=== PATIENT | female | born 1965 | race Caucasian/White ===

== ENCOUNTER 2020-07-05 09:36 | Emergency (ER) | payer OTHER ==
[2020-07-05] MEDS ORDERED: EPINEPHrine SYRINGE 1 MG/10 ML SYRINGE ONE ×2 (10:16→12:00)
[2020-07-05 10:46] LABS: BASO # 0.1 x10^3/uL (0.0-0.2); BASO % 1 % (0-3); EOS # 0.1 x10^3/uL (0.0-0.7); EOS % 1 % (0-3); HEMATOCRIT 45.1 % (36.0-47.0); HEMOGLOBIN 13.9 g/dL (12.0-15.5); LYMPH # 10.1 x10^3/uL (1.0-4.8); LYMPH % 53 % (24-48); MEAN CORPUSCULAR HEMOGLOBIN 30 pg (25-35); MEAN CORPUSCULAR HGB CONC 31 g/dL (31-37); MEAN CORPUSCULAR VOLUME 97 fL (79-100); MONO # 1.3 x10^3/uL (0.0-1.1); MONO % 7 % (0-9); NEUT # 7.6 x10^3/uL (1.8-7.7); NEUT % 40 % (31-73); PLATELET COUNT 129 x10^3/uL (140-400); RED BLOOD COUNT 4.67 x10^6/uL (3.50-5.40); RED CELL DISTRIBUTION WIDTH 14.1 % (11.5-14.5); WHITE BLOOD COUNT 19.2 x10^3/uL (4.0-11.0)
[2020-07-05 10:52] LABS: CALCIUM 9.1 mg/dL (8.5-10.1); CREATININE 1.5 mg/dL (0.6-1.0); GFR 35.9; POTASSIUM 4.3 mmol/L (3.5-5.1)
[2020-07-05 10:55] LABS: ALBUMIN 3.1 g/dL (3.4-5.0); ALBUMIN/GLOBULIN RATIO 0.8 (1.0-1.7); TOTAL PROTEIN 7.2 g/dL (6.4-8.2)
--- NOTE | 2020-07-05 11:17 | ED.ADGEN ---
General Adult EDM: Chief Complaint: CPR/FULL ARREST HPI: HPI: Patient is 54-year-old female with past medical history of asthma who presents to the emergency room in cardiac arrest. According to EMS they were called for shortness of breath. Upon their arrival patient had a oxygen level of 100% on room air and was not in any respiratory distress. They loaded her up in the ambulance and started a breathing treatment. Patient then went into cardiac arrest. They started CPR immediately. She has been in PEA since she arrested. states that she has had shortness of breath at rest to 3 days without any other known symptoms. He states that she has chronic diarrhea that is unchanged. Review of Systems: Review of Systems: Complete ROS is negative unless otherwise documented in HPI Current Medications: Current Medications Medications (Trade) Dose Ordered Sig/Diana Start Time Stop Time Status Last Admin Dose Admin Epinephrine HCl (EPINEPHrine SYRINGE) 1 mg STK-MED ONCE 07/05/20 10:16 07/05/20 10:16 DC Physical Exam: PE: General: unresponsive, toxic appearing, CPR in progress HEENT: Normocephalic, atraumatic, no drainage from eyes Neck: Supple, atraumatic, trachea midline Cardiology: No radial/femoral pulses bilaterally, no heart sounds Pulmonary: Bilateral breath sounds Abdomen: soft, nondistended Skin: intact, dry, cool, cyanotic Extremities: No deformities Neurology: nonresponsive, nonverbal, no movement, GCS 3 Current Patient Data: Labs: Laboratory Tests Test 07/05/20 09:45 White Blood Count 19.2 x10^3/uL (4.0-11.0) H Red Blood Count 4.67 x10^6/uL (3.50-5.40) Hemoglobin 13.9 g/dL (12.0-15.5) Hematocrit 45.1 % (36.0-47.0) Mean Corpuscular Volume 97 fL (79-100) Mean Corpuscular Hemoglobin 30 pg (25-35) Mean Corpuscular Hemoglobin Concent 31 g/dL (31-37) Red Cell Distribution Width 14.1 % (11.5-14.5) Platelet Count 129 x10^3/uL (140-400) L Neutrophils (%) (Auto) 40 % (31-73) Lymphocytes (%) (Auto) 53 % (24-48) H Monocytes (%) (Auto) 7 % (0-9) Eosinophils (%) (Auto) 1 % (0-3) Basophils (%) (Auto) 1 % (0-3) Neutrophils # (Auto) 7.6 x10^3/uL (1.8-7.7) Lymphocytes # (Auto) 10.1 x10^3/uL (1.0-4.8) H Monocytes # (Auto) 1.3 x10^3/uL (0.0-1.1) H Eosinophils # (Auto) 0.1 x10^3/uL (0.0-0.7) Basophils # (Auto) 0.1 x10^3/uL (0.0-0.2) Platelet Estimate Pending Sodium Level 138 mmol/L (136-145) Potassium Level 4.3 mmol/L (3.5-5.1) Chloride Level 99 mmol/L (98-107) Carbon Dioxide Level 19 mmol/L (21-32) L Anion Gap 20 (6-14) H Blood Urea Nitrogen 16 mg/dL (7-20) Creatinine 1.5 mg/dL (0.6-1.0) H Estimated GFR (Cockcroft-Gault) 35.9 BUN/Creatinine Ratio 11 (6-20) Glucose Level 459 mg/dL (70-99) H Calcium Level 9.1 mg/dL (8.5-10.1) Total Bilirubin 1.0 mg/dL (0.2-1.0) Aspartate Amino Transferase (AST) 536 U/L (15-37) H Alanine Aminotransferase (ALT) 511 U/L (14-59) H Alkaline Phosphatase 83 U/L (46-116) Total Protein 7.2 g/dL (6.4-8.2) Albumin 3.1 g/dL (3.4-5.0) L Albumin/Globulin Ratio 0.8 (1.0-1.7) L Laboratory Tests 07/05/20 09:45 Laboratory Tests 07/05/20 09:45 EKG: EKG: [] Heart Score: Risk Factors: Risk Factors: DM, Current or recent (<one month) smoker, HTN, HLP, family history of CAD, obesity. Risk Scores: Score 0 - 3: 2.5% MACE over next 6 weeks - Discharge Home Score 4 - 6: 20.3% MACE over next 6 weeks - Admit for Clinical Observation Score 7 - 10: 72.7% MACE over next 6 weeks - Early Invasive Strategies Radiology/Procedures: Radiology/Procedures: [] Course & Med Decision Making: Course & Med Decision Making Pertinent Labs and Imaging studies reviewed. (See chart for details) Patient is a 54 who presents to the emergency room in cardiac arrest. Patient had a witnessed arrest by EMS. Patient received epinephrine and has been in PEA during transport. Upon arrival to the ED a pulse check was done and patient did not have a pulse and was in PEA. Bedside ultrasound was done to evaluate cardiac motion and patient did have minimal cardiac motion. Patient did have bilateral breath sounds on exam. Patient appeared cyanotic. I-STAT was done and electrolytes were corrected as needed. Patient received epinephrine, calcium, bicarbonate. Patient's supraglottic airway was changed out for an ET tube without difficulty. After extensive efforts by EMS and the emergency room patient was pronounced at 1017. At that time there was no cardiac activity on ultrasound, patient had nonreactive pupils, no spontaneous breathing, and was in PEA. Family was notified and they were offered a chance to see their loved one and a biophysics teacher was offered. All of their questions were answered. Primary care physician was called and updated. Ruben Disclaimer: Ruben Disclaimer: This electronic medical record was generated, in whole or in part, using a voice recognition dictation system. Departure Departure Impression: Primary Impression: Cardiac arrest Disposition: 20 Condition: Referrals: UNKNOWN PCP NAME (PCP) Critical Care Time Critical Care: Authorized and Performed by: Edwar Dave MD Total critical care time: approximately 35 minutes Due to a high probability of clinically significant, life threatening deterioration, the patient required my highest level of preparedness to intervene emergently and I personally spent this critical care time directly and personally managing the patient. This critical care time included obtaining a history; examining the patient; pulse oximetry; ventilator management if necessary; ordering and review of studies; arranging urgent treatment with development of a management plan; evaluation of patient's response to treatment; frequent reassessment; discussion with patient/family; calling primary physician, and, discussions with other providers. This critical care time was performed to assess and manage the high probability of imminent, life-threatening deterioration that could result in multi-organ failure. It was exclusive of separately billable procedures and treating other patients and teaching time. Please see MDM section and the rest of the note for further information on patient assessment and treatment. PROCEDURE Procedure Intubation Performed by: Edwar Dave MD Consent: Verbal consent not obtained. The procedure was performed in an juan carlos rgent situation. Required items: required blood products, implants, devices, and special equipment available Patient identity confirmed: arm band Time out: Immediately prior to procedure a "time out" was called to verify the correct patient, procedure, equipment, practice support specialist and site/side marked as required. Indications: respiratory failure and airway protection Intubation method: direct Patient status: paralyzed (RSI) Preoxygenation: [id number] Laryngoscope size: Mac 4 Tube size: 7.5 mm Tube type: cuffed Number of attempts: 1 Cords visualized: yes Post-procedure assessment: chest rise, BS = bilaterally none over epigastrum, +CO2 detector Breath sounds: equal and absent over the epigastrium Cuff inflated: yes Tube secured with: adhesive tape Chest x-ray interpreted by me. Chest x-ray findings: endotracheal tube in appropriate position Patient tolerance: Patient tolerated the procedure well with no immediate complications. EDWAR DAVE MD Jul 05, 2020 11:17
[2020-07-05] MEDS ORDERED: CALCIUM CHLORIDE 1,000 MG/10 ML DISP.SYRIN ONE (12:00)
[2020-07-05] MEDS ORDERED: SODIUM BICARB ADULT 8.4% 50 MEQ/50 ML DISP.SYRIN. ONE (12:00)
[2020-07-05 13:01] LABS: CREATININE ISTAT 0.9 mg/dL (0.5-1.4); HEMOGLOBIN ISTAT 12.6 g/dL (12-15); ION CA ISTAT 1.52 mmol/L (1.13-1.32); POTASSIUM ISTAT 3.2 mmol/L (3.5-5.0)
== END 2020-07-05 12:30 ==
LOC: ER 09:36
DX: I46.9 Cardiac arrest, cause unspecified (principal); Z20.822 Contact with and (suspected) exposure to COVID-19; R06.02 Shortness of breath; R19.7 Diarrhea, unspecified
CPT/HCPCS: 31500; 36415; 80047; 80053; 83605; 83880; 85025; 92950; 99291; C9803; J0171; J3490; U0003